=== PATIENT | male | born 1965 | race Caucasian/White ===

== ENCOUNTER 2017-10-31 08:31 | Day surgery (SDC) | payer OTHER, SELFPAY ==
--- NOTE | 2017-10-31 08:00 | RAD_ITS ---
STUDY: X-RAY - ABDOMEN/PELVIS REASON FOR EXAM: Male, 52 years old. Right flank pain. TECHNIQUE: Two AP supine views of the abdomen and pelvis. COMPARISON: None. FINDINGS: Mild elevation of the right hemidiaphragm. The lung bases are clear. There is an unremarkable bowel gas pattern. Tiny calcifications are seen overlying the lower pole calyx of the right kidney. The larger measures 3.7 mm. There are calcified phleboliths in the pelvis. Normal visualized osseous structures. RAD/Abdomen Single View IMPRESSION: There are 2 small calcifications overlying the lower pole calyx of the right kidney. Electronically Signed: Steve Canales MD at 9:14 EST Tel [phone], Service support ,
[2017-10-31 09:19] VITALS: BP 144/95; PULSE 66; RESP 16; TEMP 36.8; O2SAT 99; BMI 36.1
--- NOTE | 2017-10-31 12:43 | DCINST_ITS ---
Discharge Diet: Light diet - advance as tolerated Discharge Activity: Return to Normal Activity Call your doctor if your incision/area has: Continuous Slow Oozing Call your doctor if you observe: Fever of 101 or Higher, Uncontrolled pain Instructions: Shock Wave Lithotripsy Allergies/Adverse Reactions: Allergies morphine Adverse Reaction (Verified 10/24/17 15:00) MAKES ME SICK Medications to take at Discharge Ibuprofen [Motrin] 400 mg PO BID 10/25/13 Hydrocodone/Acetaminophen [[place] 5-325 Tablet] 1 ea PO Q4H PRN PRN 5 Days #14 tab 10/31/17 The following prescriptions were given: Hydrocodone/Acetaminophen [[place] 5-325 Tablet] 1 ea PO Q4H PRN PRN 5 Days #14 tab PRN Reason: Pain Primary Care Physician: Care Physician,No Primary [Primary Care Provider] - Please Follow Up With: Camilo Carlin MD When: please call to make an appointment.
--- NOTE | 2017-10-31 13:28 | PCM.OPRPT ---
Problem List (1) Right kidney stone Status: Acute Report of Operation Date of Procedure: 10/31/17 Pre-Operative Diagnosis: Right renal calculi Post-Operative Diagnosis: Same Surgery/Procedure Performed:: Right extracorporeal shockwave lithotripsy Description of Surgical Findings:: 52-year-old male was taken back to the operating room after smooth induction of general anesthesia he was placed supine on the table we then used the fluoroscopy machine to find a stone in the lower pole of the right kidney we then moved the lithotripter table and put the stone in the F2 focal point of the right kidney and then treated the stone with shockwave lithotripsy. Stone was given 3000 shockwaves at a rate of 120 and at the completion of the treatment cycle the stone was broken up fairly well. No stent was left. Patient anesthetic was reversed is taken back to PACU in good condition. Type of Anesthesia:: General Drains: none - Admit VTE Documentation VTE Present on Admission: No VTE Mechan Device Prophylaxis: SCD's VTE Pharm Prophylaxis ordered?: No Reason prophylaxis not ordered:: Treatment Not Indicated
[2017-10-31 13:31] VITALS: BP 144/95; BP 162/105; PULSE 74; RESP 15; TEMP 36.2; O2SAT 93
[2017-10-31 13:46] VITALS: BP 136/98; BP 144/95; PULSE 70; RESP 16; O2SAT 92
[2017-10-31 14:00] VITALS: BP 135/93; BP 144/95; PULSE 66; RESP 16; TEMP 36.2; O2SAT 96
[2017-10-31 14:33] VITALS: BP 144/95
[2017-10-31] MEDS: HYDROcodone Bitartrate/Apap 5/325 Tablet PO (14:36)
[2017-10-31] MEDS: Ketorolac 15 MG/ML Vial IV (14:37)
== END 2017-10-31 15:20 | disposition home or self-care (01) ==
LOC: SDC 08:33 → AC 08:34
PROVIDERS: Visit Provider Urology
PROC: (CPT 50590; principal; 2017-10-31 11:35)
DX: N20.0 Calculus of kidney (principal); Z87.442 Personal history of urinary calculi; Z79.899 Other long term (current) drug therapy
CPT/HCPCS: 50590; 74018; J7120; J2405

== ENCOUNTER → 2019-07-21 | Outpatient (CLI) | payer OTHER, SELFPAY | END | disposition home or self-care (01) | PROVIDERS: Referring Provider Family Medicine; Visit Provider Family Medicine | DX: R07.9 Chest pain, unspecified (principal) | CPT/HCPCS: 84484 ==

== ENCOUNTER → 2019-08-04 | Outpatient (CLI) | payer OTHER, SELFPAY ==
--- NOTE | 2019-08-04 15:11 | STRESSREP ---
Stress Test Report Treadmill stress test: Resting EKG: Normal sinus rhythm, normal axis, normal intervals, no evidence of previous myocardial infarction, poor R wave progression across precordium which may be secondary to lead misplacement. Treadmill EKG: The patient exercised according to Derick protocol for 6 minutes and 0 seconds achieving a maximum work level of 7.00 METS. Resting heart rate was initially 93 beats a minute and ector to max of 1 foot 64 beats minute which represents 90% of the maximal age picked at heart rate. Resting blood pressure was 142/90, and ector to max of 174/82. Test was terminated due to dyspnea. During exercise the patient's heart rate increased as expected. Patient had rare PACs noted during exercise. Patient had rare PVCs noted during exercise. Conclusions: Normal, adequate, treadmill EKG. Negative for ischemia by EKG criteria. No anginal symptoms noted. Rare PAC and PVC noted. Appropriate blood pressure response to exercise. Average exercise capacity for age. Test terminated due to dyspnea.
== END | disposition home or self-care (01) ==
LOC: CVS 09:00
PROVIDERS: Family Provider Family Medicine; PCP Family Medicine; Referring Provider Family Medicine; Visit Provider Family Medicine
DX: R07.9 Chest pain, unspecified (principal)
CPT/HCPCS: 93017

== ENCOUNTER → 2020-09-01 16:14 | Outpatient (CLI) | payer OTHER, SELFPAY ==
[2020-09-01 17:16] LABS: Pathologist Comment May follow
[2020-09-01 18:53] LABS: RBC /Synovial Fluid 0.022 10^6/uL (0); Synovial Fld Mononuclear WBC % 54.8 %; Synovial Fld Polynuclear WBC # 0.126 10^3/uL; Synovial Fld Polynuclear WBC % 45.2 %
[2020-09-01 21:32] LABS: AUTO B FLUID DILUENT BKGD CT WBC <0.1 RBC <0.01 (W<.1,R<.01)
[2020-09-01 21:33] LABS: Appearance /Synovial Fluid Hazy (CLEAR); Color / Synovial Fluid Pink (Pale Yellow); Source / Synovial Fluid LEFT KNEE; Source- Body Fluid SYNOVIAL; Viscosity / Synovial Fluid Sl. Viscous (HIGH)
[2020-09-01 21:58] LABS: Monocyte /Synovial Fluid 52 %; Neutrophil 36 % (0-25); Other Cell /Synovial Fluid 12 %
[2020-09-01 22:12] LABS: CRYSTALS, BODY FLUID Other, see comment
[2020-09-04 13:18] LABS: Pathologist Review Reviewed
== END ==
PROVIDERS: PCP Family Medicine; Visit Provider Registered Nurse
DX: M17.12 Unilateral primary osteoarthritis, left knee (principal); M70.42 Prepatellar bursitis, left knee
CPT/HCPCS: 87070; 87075; 87205; 89050; 89051; 89060

== ENCOUNTER 2022-09-24 16:00 | Emergency (ER) | payer OTHER, SELFPAY | END 2022-09-24 16:11 | disposition left against medical advice (07) | LOC: ED 16:10 | PROVIDERS: PCP Family Medicine | DX: Z53.21 Procedure and treatment not carried out due to patient leaving prior to being seen by health care provider (principal) ==